=== PATIENT | male | born 1985 | race Two or more races ===

== ENCOUNTER 2023-04-14 14:18 | Emergency (ER) | payer BC ==
[2023-04-14 14:56] VITALS: BP 143/90; PULSE 87; RESP 15; TEMP 99.3; BMI 29.1
== END 2023-04-14 17:02 | disposition home or self-care (01) ==
LOC: FER 14:18 → SUPCPDRO 14:18 → FER 17:02
DX: R10.32 Left lower quadrant pain (principal); N20.0 Calculus of kidney
CPT/HCPCS: 74176-TC; 81003; 81015; 99284-25

== ENCOUNTER 2023-12-03 18:55 | Emergency (ER) | payer BC ==
[2023-12-03 19:05] VITALS: PULSE 72; RESP 18; TEMP 97.8; BMI 30.4
[2023-12-03] MEDS ORDERED: AZITHROMYCIN 500 MG TABLET PO ONE (20:08)
[2023-12-03] MEDS ORDERED: ACETAMINOPHEN 500 MG TABLET (FP) ONE ×2 (20:18→20:19)
[2023-12-03] MEDS ORDERED: AZITHROMYCIN 500 MG TABLET ONE (20:19)
[2023-12-03 20:27] VITALS: BP 128/85
[2023-12-03] MEDS ORDERED: ACETAMINOPHEN 500 MG TABLET (FP) PO ONE (20:28)
== END 2023-12-03 20:30 | disposition home or self-care (01) ==
LOC: FER 18:55
DX: R51.9 Headache, unspecified (principal); I10 Essential (primary) hypertension; J01.10 Acute frontal sinusitis, unspecified; R73.9 Hyperglycemia, unspecified
CPT/HCPCS: 70450-TC; 99284-25